=== PATIENT | male | born 1970 | race Caucasian/White ===

== ENCOUNTER 2017-01-30 21:51 | Emergency (ER) | payer OTHER ==
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
[~2017-01-30 21:51] MED LIST: CIPRO PO; FLEXERIL10 M1 PO; KEFLEX PO; NO MEDICATIONS; PROTONIX PO; VICODIN 5/500 T1 TAB PO; VOLTAREN75 MG PO
== END 2017-01-30 23:52 | disposition home or self-care (01) ==
LOC: SED 21:51
DX: S06.0X9A Concussion with loss of consciousness of unspecified duration, initial encounter (principal); S16.1XXA Strain of muscle, fascia and tendon at neck level, initial encounter; S39.012A Strain of muscle, fascia and tendon of lower back, initial encounter; V49.10XA Passenger injured in collision with unspecified motor vehicles in nontraffic accident, initial encounter
CPT/HCPCS: 70450; 72100; 72125; 99284